=== PATIENT | female | born 1960 | race Caucasian/White ===

== ENCOUNTER 2017-06-27 10:13 | Outpatient (CLI) | payer OTHER | END 2017-06-27 10:14 | disposition home or self-care (01) | LOC: SC 10:13 | PROVIDERS: ATTEND Internal Medicine Pulmonary Disease | DX: G47.10 Hypersomnia, unspecified (principal); R53.83 Other fatigue; R06.83 Snoring; R51 Headache | CPT/HCPCS: 99203; 99212 ==

== ENCOUNTER 2017-10-04 22:22 | Outpatient (CLI) | payer OTHER | END 2017-10-04 22:23 | disposition home or self-care (01) | LOC: SC 22:22 | PROVIDERS: ATTEND Internal Medicine Pulmonary Disease | DX: G47.10 Hypersomnia, unspecified (principal) | CPT/HCPCS: 95810 ==

== ENCOUNTER 2017-10-05 07:20 | Outpatient (CLI) | payer OTHER | END 2017-10-05 07:21 | disposition home or self-care (01) | LOC: SC 07:20 | PROVIDERS: ATTEND Internal Medicine Pulmonary Disease | DX: G47.11 Idiopathic hypersomnia with long sleep time (principal) | CPT/HCPCS: 95805 ==

== ENCOUNTER 2017-10-05 15:57 | Outpatient (CLI) | payer OTHER ==
[2017-10-05 13:00] LABS: MUDS CUTOFF CONCENTRATIONS CUTOFF CONC BELOW:
[2017-10-05 13:24] LABS: AMPHETAMINE SCREEN,URINE NEGATIVE (NEGATIVE); BENZODIAZEPINES SCREEN, URINE NEGATIVE (NEGATIVE); COCAINE SCREEN URINE NEGATIVE (NEGATIVE); METHADONE SCREEN, URINE NEGATIVE (NEGATIVE); METHAMPHETAMINES SCREEN, URINE NEGATIVE (NEGATIVE); OPIATE SCREEN, URINE NEGATIVE (NEGATIVE); OXYCODONE SCREEN, URINE NEGATIVE (NEGATIVE); PROPOXYPHENE SCREEN, URINE NEGATIVE (NEGATIVE); TRICYCLIC ANTIDEPRESSANT,URINE NEGATIVE (NEGATIVE)
== END 2017-10-05 15:58 | disposition home or self-care (01) ==
LOC: LAB.R 15:57
PROVIDERS: ATTEND Internal Medicine Pulmonary Disease
DX: G47.33 Obstructive sleep apnea (adult) (pediatric) (principal)
CPT/HCPCS: 80306

== ENCOUNTER 2017-11-01 14:09 | Outpatient (CLI) | payer OTHER | END 2017-11-01 14:10 | disposition home or self-care (01) | LOC: SC 14:09 | PROVIDERS: ATTEND Internal Medicine Pulmonary Disease | DX: G47.10 Hypersomnia, unspecified (principal) | CPT/HCPCS: 99212; 99213 ==

== ENCOUNTER 2021-04-23 09:50 | Outpatient (CLI) | payer OTHER ==
--- NOTE | 2021-04-23 14:09 | MRI Report ---
PROCEDURE: Knee RT W/O INDICATIONS: RIGHT KNEE PAIN TECHNIQUE: Noncontrast sagittal PD fast spin echo and T2 fast spin echo with fat saturation, sagittal 3-D spoile d GE with fat saturation; coronal T1 spin echo and PD fast spin echo with fat saturation, and axial P D fast spin echo with fat saturation through the knee. COMPARISON: None. FINDINGS: Image quality: Excellent. Menisci: Mild intrasubstance signal seen within the body of the medial meniscus without a discrete t ear. There is nondisplaced tearing of the posterior horn and body of the lateral meniscus extending t o the inner third of the tibial articular surface. A small 4 mm parameniscal cyst is seen along the n onarticular margin. Cruciate ligaments: The anterior and posterior cruciate ligaments appear intact. Medial structures: The medial collateral ligament appears intact. The semimembranosus tendon insert ions appear intact. Visualized portions of the pes anserinus tendons appear normal. Lateral structures: The lateral collateral ligament, long and short heads of the biceps femoris tend on appear intact. The popliteus tendon appears intact. Iliotibial band appears normal. Anterior structures: The quadriceps and patellar tendons appear intact. Patellar alignment is giancarlo l. No femoral trochlear dysplasia or ventral trochlear prominence. No edema in the infrapatellar fa t pad. Bones and cartilage: No bone marrow contusion or acute fracture. There is mild grade 2 cartilage ir regularity in the weightbearing portion of the medial femorotibial compartment. The lateral compartme nt articular cartilages are grossly intact. There is focal high-grade cartilage loss at the inferior portion of the lateral patellar facet with focal subchondral edema. Joint space and soft tissues: There is a small joint effusion. There is no medial popliteal cyst. A small amount of fluid is seen tracking along the popliteus tendon sheath. A small lobular ganglion c yst is seen at the origin of the lateral head of the gastrocnemius muscle. IMPRESSION: 1. Displaced tearing of the posterior horn and body of the lateral meniscus extending to the inner t hird of the tibial articular surface with a small parameniscal cyst. 2. 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 Mild gr humble II chondromalacia is seen in the medial compartment. 3. Intact cruciate and collateral ligaments. 4. Small joint effusion. Reviewed by: Heber Gu MD on 04/23/2021 2:08 PM PDT Approved by: Heber Gu MD on 04/23/2021 2:08 PM PDT Station ID: [id number]
== END 2021-04-23 09:51 | disposition home or self-care (01) ==
LOC: DI 09:50
PROVIDERS: ATTEND Physician Assistant
DX: S83.281A Other tear of lateral meniscus, current injury, right knee, initial encounter (principal); M94.261 Chondromalacia, right knee; M25.461 Effusion, right knee